=== PATIENT | female | born 1995 | race African-American/Black ===

== ENCOUNTER 2016-11-26 13:23 | Emergency (ER) | payer OTHER ==
[~2016-11-26] VITALS: Ht 182.8 cm; Wt 149.7 kg
[~2016-11-26 13:23] MED LIST: ADDERALL XR 3030 MG PO; ADDERALL XR30 MG PO; ADDERALL30 MG PO; ALBUTEROL0.09 MG/A2 INH; ALPRAZOLAM0.5 M3 PO; AMOXICILLIN500 MG PO; BENADRYL25 MG PO; CEPHALEXIN500 M1 PO; CIPRO250 MG PO; CLARITIN10 MG PO; CLINDAMYCIN HC300 MG PO; CLINDAMYCIN150 MG PO; FLONASE 0.05% 121 EA NAS; FLONASE ALLERG9.9 ML NAS; HYDROCODONE BIT1 T11 PO; IBU800 MG PO; LAMICTAL25 MG PO; LAMOTRIGINE25 M1 PO; MEDROL DOSEPAK4 MG PO; NAPROSYN250 MG PO; NAPROSYN500 MG PO; NAPROXEN500 M1 PO; NORCO 325 MG-51 TAB PO; PEN-V500 MG PO; PENICILLIN VK500 MG PO; PERIDEX 480 ML480 ML PO; PREDNISONE10 MG PO; ROBITUSSIN AC 110 ML PO; TESSALON PERLE100 M1 PO; ULTRAM50 MG PO; ZITHROMAX Z PA250 MG PO; ZOFRAN ODT4 MG SL; ZOFRAN4 MG PO
== END 2016-11-26 13:57 | disposition left against medical advice (07) ==
LOC: ED 13:23
DX: Z32.02 Encounter for pregnancy test, result negative (principal); Z53.21 Procedure and treatment not carried out due to patient leaving prior to being seen by health care provider

== ENCOUNTER 2016-12-21 13:29 | Emergency (ER) | payer OTHER | END 2016-12-21 16:11 | disposition home or self-care (01) | LOC: ED 13:29 | DX: S62.306A Unspecified fracture of fifth metacarpal bone, right hand, initial encounter for closed fracture (principal); R03.0 Elevated blood-pressure reading, without diagnosis of hypertension; F17.200 Nicotine dependence, unspecified, uncomplicated; Y08.89XA Assault by other specified means, initial encounter; Y93.89 Activity, other specified; Y92.9 Unspecified place or not applicable; Y99.9 Unspecified external cause status ==

== ENCOUNTER → 2017-09-22 | Outpatient (CLI) | payer OTHER | END | disposition home or self-care (01) | LOC: CARD 14:32 | DX: Z51.81 Encounter for therapeutic drug level monitoring (principal); F90.0 Attention-deficit hyperactivity disorder, predominantly inattentive type; Z79.899 Other long term (current) drug therapy ==

== ENCOUNTER 2018-04-01 18:50 | Emergency (ER) | payer OTHER ==
[~2018-04-01] VITALS: Wt 149.7 kg
[2018-04-01] MEDS ORDERED: VIBRAMYCIN100 MG PO (19:20)
[2018-04-01] MEDS ORDERED: KENALOG 0.1%80 GM T (19:20)
== END 2018-04-01 19:40 | disposition home or self-care (01) ==
LOC: ED 18:50
DX: L02.412 Cutaneous abscess of left axilla (principal); L30.9 Dermatitis, unspecified; Z79.899 Other long term (current) drug therapy

== ENCOUNTER 2018-08-03 11:08 | Emergency (ER) | payer OTHER ==
[~2018-08-03] VITALS: Ht 177.8 cm; Wt 135.2 kg
[~2018-08-03 11:08] MED LIST changes: +KENALOG 0.1%80 GM T; +VIBRAMYCIN100 MG PO
[2018-08-03] MEDS ORDERED: ZITHROMAX250 MG PO (13:35)
== END 2018-08-03 13:38 | disposition home or self-care (01) ==
LOC: ED 11:08
DX: J40 Bronchitis, not specified as acute or chronic (principal); F17.200 Nicotine dependence, unspecified, uncomplicated; Z79.899 Other long term (current) drug therapy

== ENCOUNTER 2019-10-14 23:49 | Emergency (ER) | payer OTHER ==
[~2019-10-14] VITALS: Ht 180.3 cm; Wt 149.7 kg
[~2019-10-14 23:49] MED LIST changes: +PREDNISONE20 M1 PO; +ROBAXIN500 M1 PO; +ZITHROMAX250 MG PO
[2019-10-15 01:12] LABS: BASO % 0.4 % (0.0-1.0); EOS # 0.3 10*3/uL (0.0-0.4); HEMATOCRIT 39.9 % (37.0-47.0); HEMOGLOBIN 12.8 g/dl (12.0-16.0); LYMPH # 4.1 10*3/uL (1.3-4.4); LYMPH % 36.4 % (27.0-41.0); MEAN CORPUSCULAR HGB 31.8 pg (27.0-31.0); MEAN CORPUSCULAR HGB CONC 32.1 g/dl (33.0-37.0); MEAN PLATELET VOLUME 10.1 fl (9.6-12.3); MONO % 8.8 % (3.0-9.0); NEUT # 5.8 10*3/uL (2.3-7.9); NEUT % 50.9 % (47.0-73.0); PLATELET COUNT AUTOMATED 324 10*3/uL (130-400); RED BLOOD COUNT 4.03 10*6/uL (4.10-5.10); RED CELL DISTRI WIDTH 12.9 % (0-14.5); WHITE BLOOD COUNT 11.3 10*3/uL (4.8-10.8)
[2019-10-15 01:27] LABS: ALBUMIN 3.1 gm/dl (3.1-4.5); ALKALINE PHOSPHATASE 85 U/L (45-117); BUN 12 mg/dl (7-24); CHLORIDE 108 mmol/L (98-107); CREATININE 1.12 mg/dL (0.55-1.02); POTASSIUM 4.4 mmol/L (3.5-5.1); SGOT/AST 20 IU/L (3-35); SGPT/ALT 19 U/L (12-78); SODIUM 140 mmol/L (136-145); TOTAL PROTEIN 7.2 gm/dL (6.4-8.2)
[2019-10-15] MEDS ORDERED: PEPCID20 MG PO (03:39)
[2019-10-15] MEDS ORDERED: PREDNISONE10 M1 PO (03:39)
[2019-10-15] MEDS ORDERED: DIPHENHYDRAMINE50 M1 PO (03:39)
== END 2019-10-15 03:58 | disposition home or self-care (01) ==
LOC: ED 23:49
PROVIDERS: Emergency Medicine
DX: T78.40XA Allergy, unspecified, initial encounter (principal); L50.9 Urticaria, unspecified; Z79.2 Long term (current) use of antibiotics; Z79.899 Other long term (current) drug therapy; X58.XXXA Exposure to other specified factors, initial encounter

== ENCOUNTER 2020-02-01 14:36 | Emergency (ER) | payer OTHER ==
[~2020-02-01] VITALS: Ht 180.3 cm; Wt 136.1 kg
[~2020-02-01 14:36] MED LIST changes: +DIPHENHYDRAMINE50 M1 PO; +PEPCID20 MG PO; +PREDNISONE10 M1 PO
[2020-02-01 15:19] LABS: BILIRUBIN NEGATIVE (NEGATIVE); BLOOD NEGATIVE (NEGATIVE); CLARITY CLEAR (CLEAR); COLOR YELLOW (YELLOW); GLUCOSE NEGATIVE (NEGATIVE); KETONE NEGATIVE (NEGATIVE); LEUKO ESTERASE TRACE (NEGATIVE); NITRITE NEGATIVE (NEGATIVE); SPECIFIC GRAVITY 1.015 (1.005-1.030); UROBILINOGEN 0.2 E.U./dl (0.2-1.0)
[2020-02-01 15:20] LABS: EPITHELIAL CELLS TNTC
[2020-02-01 15:21] LABS: BACTERIA 1+; MUCOUS TRACE
== END 2020-02-01 15:33 | disposition home or self-care (01) ==
LOC: ED 14:36
PROVIDERS: Nurse Practitioner Family
DX: Z20.2 Contact with and (suspected) exposure to infections with a predominantly sexual mode of transmission (principal); Z79.899 Other long term (current) drug therapy

== ENCOUNTER → 2020-04-11 | Outpatient (CLI) | payer OTHER | END | disposition home or self-care (01) | LOC: US 10:58 | PROVIDERS: ATTEND Nurse Practitioner Women's Health | DX: Z33.1 Pregnant state, incidental (principal) ==

== ENCOUNTER → 2020-04-20 | Outpatient (CLI) | payer OTHER | END | disposition home or self-care (01) | LOC: US 07:30 | PROVIDERS: ATTEND Nurse Practitioner Women's Health | DX: Z34.81 Encounter for supervision of other normal pregnancy, first trimester (principal); Z3A.08 8 weeks gestation of pregnancy ==

== ENCOUNTER → 2020-07-12 | Outpatient (CLI) | payer OTHER | END | disposition home or self-care (01) | LOC: US 10:30 | PROVIDERS: ATTEND Nurse Practitioner Women's Health | DX: Z34.82 Encounter for supervision of other normal pregnancy, second trimester (principal); Z3A.19 19 weeks gestation of pregnancy ==

== ENCOUNTER 2020-10-17 02:43 | Emergency (ER) | payer OTHER ==
[~2020-10-17] VITALS: Wt 149.7 kg
[2020-10-17 05:19] LABS: BILIRUBIN Negative (Negative); BLOOD Negative (Negative); COLOR Yellow (Yellow); GLUCOSE Negative (Negative); KETONE Trace (Negative); LEUKO ESTERASE 1+ (Negative); NITRITE Negative (Negative); PH 5.5 (4.5-8.0); SPECIFIC GRAVITY >= 1.030 (1.001-1.030)
[2020-10-17 05:26] LABS: CLARITY Cloudy (Clear)
[2020-10-17 05:53] LABS: BACTERIA TRACE; CALCIUM OXALATE CRYSTALS 3+; EPITHELIAL CELLS 21-30
== END 2020-10-17 06:20 | disposition home or self-care (01) ==
LOC: ED 02:43
PROVIDERS: Emergency Medicine
DX: O36.8130 Decreased fetal movements, third trimester, not applicable or unspecified (principal); Z79.899 Other long term (current) drug therapy; Z3A.32 32 weeks gestation of pregnancy

== ENCOUNTER 2021-01-03 05:07 | Inpatient (IN) | payer OTHER ==
[~2021-01-03] VITALS: Ht 175 cm; Wt 150.6 kg
[2021-01-03 05:10] VITALS: BP 124/84
[2021-01-03 06:19] LABS: BASO % 0.3 % (0.0-1.0); EOS # 0.2 10*3/uL (0.0-0.4); EOS % 1.1 % (1.0-4.0); HEMATOCRIT 35.7 % (37.0-47.0); MEAN CELL VOLUME 97.5 fl (81.0-99.0); MEAN CORPUSCULAR HGB CONC 32.8 g/dl (33.0-37.0); MEAN PLATELET VOLUME 9.3 fl (9.6-12.3); MONO # 0.9 10*3/uL (0.1-1.0); MONO % 5.7 % (3.0-9.0); NEUT # 12.1 10*3/uL (2.3-7.9); NEUT % 79.2 % (47.0-73.0); PLATELET COUNT AUTOMATED 253 10*3/uL (130-400); RED BLOOD COUNT 3.66 10*6/uL (4.10-5.10); RED CELL DISTRI WIDTH 12.2 % (0-14.5); WHITE BLOOD COUNT 15.2 10*3/uL (4.8-10.8)
[2021-01-03 06:35] LABS: ALBUMIN 2.7 gm/dl (3.1-4.5); ALKALINE PHOSPHATASE 87 U/L (45-117); BUN 12 mg/dl (7-24); CHLORIDE 108 mmol/L (98-107); CREATININE 1.02 mg/dL (0.55-1.02); POTASSIUM 4.1 mmol/L (3.5-5.1); SGOT/AST 19 IU/L (3-35); SGPT/ALT 24 U/L (12-78); SODIUM 141 mmol/L (136-145)
[2021-01-03 06:42] LABS: TROPONIN I < 0.015 ng/ml (<0.045)
[2021-01-03 09:30] VITALS: BP 133/79
[2021-01-03 10:08] LABS: ACT PARTIAL THROMBO TIME 32.2 SECONDS (20.0-32.1); INTERNATIONAL NORM RATIO 0.9 (2.0-3.5)
[2021-01-03 10:30] VITALS: BP 130/80
[2021-01-03 16:00] VITALS: BP 144/78
[2021-01-03 20:00] VITALS: BP 128/87
[2021-01-04] VITALS: BP 139/95
[2021-01-04 06:17] LABS: BASO % 0.3 % (0.0-1.0); EOS # 0.2 10*3/uL (0.0-0.4); EOS % 1.3 % (1.0-4.0); HEMATOCRIT 37.1 % (37.0-47.0); LYMPH # 2.4 10*3/uL (1.3-4.4); LYMPH % 18.4 % (27.0-41.0); MEAN CELL VOLUME 96.1 fl (81.0-99.0); MEAN CORPUSCULAR HGB 31.6 pg (27.0-31.0); MEAN CORPUSCULAR HGB CONC 32.9 g/dl (33.0-37.0); MEAN PLATELET VOLUME 9.6 fl (9.6-12.3); MONO # 0.9 10*3/uL (0.1-1.0); MONO % 7.1 % (3.0-9.0); NEUT # 9.3 10*3/uL (2.3-7.9); NEUT % 71.9 % (47.0-73.0); PLATELET COUNT AUTOMATED 269 10*3/uL (130-400); RED BLOOD COUNT 3.86 10*6/uL (4.10-5.10); RED CELL DISTRI WIDTH 12.2 % (0-14.5); WHITE BLOOD COUNT 12.9 10*3/uL (4.8-10.8)
[2021-01-04 07:07] LABS: ALBUMIN 2.8 gm/dl (3.1-4.5); ALKALINE PHOSPHATASE 90 U/L (45-117); BUN 6 mg/dl (7-24); CHLORIDE 106 mmol/L (98-107); CHOLESTEROL 161 mg/dL (<200); CREATININE 0.85 mg/dL (0.55-1.02); FREE T4 1.08 ng/dl (0.76-1.46); LDL CHOLESTEROL 83 mg/dL (9-159); POTASSIUM 3.8 mmol/L (3.5-5.1); SGOT/AST 12 IU/L (3-35); SGPT/ALT 23 U/L (12-78); SODIUM 138 mmol/L (136-145); TOTAL PROTEIN 7.4 gm/dL (6.4-8.2); TRIGLYCERIDES 220 mg/dl (<150)
[2021-01-04 08:00] VITALS: BP 131/64
[2021-01-04 08:24] LABS: VITAMIN D, 25-HYDROXY 9.4 ng/mL (30-100)
[2021-01-04 12:00] VITALS: BP 118/69
[2021-01-04 16:00] VITALS: BP 122/75
[2021-01-04 20:00] VITALS: BP 113/76
[2021-01-05] VITALS: BP 118/73
[2021-01-05 06:21] LABS: BASO # 0.1 10*3/uL (0.0-0.1); BASO % 0.3 % (0.0-1.0); EOS # 0.1 10*3/uL (0.0-0.4); EOS % 0.8 % (1.0-4.0); LYMPH # 2.2 10*3/uL (1.3-4.4); LYMPH % 15.3 % (27.0-41.0); MEAN CELL VOLUME 98.3 fl (81.0-99.0); MEAN CORPUSCULAR HGB 31.5 pg (27.0-31.0); MONO # 1.1 10*3/uL (0.1-1.0); MONO % 7.4 % (3.0-9.0); NEUT # 10.9 10*3/uL (2.3-7.9); NEUT % 75.2 % (47.0-73.0); PLATELET COUNT AUTOMATED 280 10*3/uL (130-400); RED BLOOD COUNT 3.56 10*6/uL (4.10-5.10); RED CELL DISTRI WIDTH 12.1 % (0-14.5); WHITE BLOOD COUNT 14.5 10*3/uL (4.8-10.8)
[2021-01-05 06:35] LABS: BUN 10 mg/dl (7-24); CHLORIDE 106 mmol/L (98-107); CREATININE 1.07 mg/dL (0.55-1.02); POTASSIUM 4.1 mmol/L (3.5-5.1); SODIUM 139 mmol/L (136-145)
[2021-01-05 08:00] VITALS: BP 120/68
[2021-01-05 12:00] VITALS: BP 123/89
[2021-01-05 16:00] VITALS: BP 120/88
[2021-01-05 20:00] VITALS: BP 100/77
[2021-01-06] VITALS: BP 122/63
[2021-01-06 06:16] LABS: ALBUMIN 2.6 gm/dl (3.1-4.5); BUN 9 mg/dl (7-24); CHLORIDE 108 mmol/L (98-107); CREATININE 0.88 mg/dL (0.55-1.02); POTASSIUM 3.8 mmol/L (3.5-5.1); SGOT/AST 15 IU/L (3-35); SGPT/ALT 23 U/L (12-78); SODIUM 139 mmol/L (136-145)
[2021-01-06 06:19] LABS: ALKALINE PHOSPHATASE 81 U/L (45-117)
[2021-01-06 06:44] LABS: BASO % 0.3 % (0.0-1.0); EOS # 0.2 10*3/uL (0.0-0.4); EOS % 2.1 % (1.0-4.0); HEMATOCRIT 32.7 % (37.0-47.0); LYMPH # 2.5 10*3/uL (1.3-4.4); LYMPH % 23.8 % (27.0-41.0); MEAN CELL VOLUME 99.1 fl (81.0-99.0); MEAN CORPUSCULAR HGB 31.5 pg (27.0-31.0); MEAN CORPUSCULAR HGB CONC 31.8 g/dl (33.0-37.0); MONO # 0.8 10*3/uL (0.1-1.0); MONO % 7.8 % (3.0-9.0); NEUT % 65.1 % (47.0-73.0); PLATELET COUNT AUTOMATED 284 10*3/uL (130-400); RED CELL DISTRI WIDTH 12.3 % (0-14.5); WHITE BLOOD COUNT 10.7 10*3/uL (4.8-10.8)
[2021-01-06 08:00] VITALS: BP 134/87
[2021-01-06 12:00] VITALS: BP 122/78
[2021-01-06] MEDS ORDERED: VITAMIN D3125 MC1 PO (13:32)
[2021-01-06] MEDS ORDERED: HYDROCODONE-AC1 EAC1 PO (13:32)
[2021-01-06] MEDS ORDERED: XARELTO1 EACH PO (13:32)
== END 2021-01-06 15:51 | disposition home or self-care (01) | DRG 561 ==
LOC: ED 05:07 → 5E 09:56 → EDHOLD 09:56 → 5E 10:22
PROVIDERS: Emergency Medicine; Internal Medicine; ADMIT Internal Medicine; ATTEND Internal Medicine
DX: O88.23 Thromboembolism in the puerperium (principal); I26.99 Other pulmonary embolism without acute cor pulmonale; E87.8 Other disorders of electrolyte and fluid balance, not elsewhere classified; D64.9 Anemia, unspecified; E43 Unspecified severe protein-calorie malnutrition; R65.10 Systemic inflammatory response syndrome (SIRS) of non-infectious origin without acute organ dysfunction; E55.9 Vitamin D deficiency, unspecified; F90.9 Attention-deficit hyperactivity disorder, unspecified type; O99.285 Endocrine, nutritional and metabolic diseases complicating the puerperium; O99.345 Other mental disorders complicating the puerperium; O99.215 Obesity complicating the puerperium; O86.89 Other specified puerperal infections; E66.01 Morbid (severe) obesity due to excess calories; O99.893 Other specified diseases and conditions complicating puerperium; O25.3 Malnutrition in the puerperium; O99.03 Anemia complicating the puerperium; R59.0 Localized enlarged lymph nodes; Z83.3 Family history of diabetes mellitus; Z82.49 Family history of ischemic heart disease and other diseases of the circulatory system; Z87.891 Personal history of nicotine dependence

== ENCOUNTER 2021-01-07 21:52 | Inpatient (IN) | payer OTHER ==
[~2021-01-07] VITALS: Ht 180.3 cm; Wt 151.6 kg
[~2021-01-07 21:52] MED LIST changes: +HYDROCODONE-AC1 EAC1 PO; +VITAMIN D3125 MC1 PO; +XARELTO1 EACH PO
[2021-01-07 21:58] VITALS: BP 149/103
[2021-01-07 22:20] LABS: BASO % 0.1 % (0.0-1.0); EOS # 0.1 10*3/uL (0.0-0.4); EOS % 1.1 % (1.0-4.0); HEMATOCRIT 32.9 % (37.0-47.0); LYMPH # 1.9 10*3/uL (1.3-4.4); LYMPH % 15.3 % (27.0-41.0); MEAN CELL VOLUME 98.5 fl (81.0-99.0); MEAN CORPUSCULAR HGB 31.4 pg (27.0-31.0); MEAN CORPUSCULAR HGB CONC 31.9 g/dl (33.0-37.0); MEAN PLATELET VOLUME 9.3 fl (9.6-12.3); MONO # 0.9 10*3/uL (0.1-1.0); MONO % 7.4 % (3.0-9.0); NEUT # 9.3 10*3/uL (2.3-7.9); NEUT % 75.3 % (47.0-73.0); PLATELET COUNT AUTOMATED 334 10*3/uL (130-400); RED BLOOD COUNT 3.34 10*6/uL (4.10-5.10); RED CELL DISTRI WIDTH 12.3 % (0-14.5); WHITE BLOOD COUNT 12.4 10*3/uL (4.8-10.8)
[2021-01-07 22:35] LABS: ALBUMIN 2.6 gm/dl (3.1-4.5); ALKALINE PHOSPHATASE 79 U/L (45-117); BUN 6 mg/dl (7-24); CHLORIDE 106 mmol/L (98-107); CREATININE 0.88 mg/dL (0.55-1.02); POTASSIUM 3.6 mmol/L (3.5-5.1); SGOT/AST 14 IU/L (3-35); SGPT/ALT 24 U/L (12-78); SODIUM 139 mmol/L (136-145); TOTAL PROTEIN 7.7 gm/dL (6.4-8.2)
[2021-01-07 22:59] LABS: TROPONIN I < 0.015 ng/ml (<0.045)
[2021-01-08] VITALS (7 sets, daily range): BP systolic 108–147; BP diastolic 55–82
[2021-01-08 07:33] LABS: BASO % 0.3 % (0.0-1.0); EOS # 0.1 10*3/uL (0.0-0.4); EOS % 1.3 % (1.0-4.0); HEMATOCRIT 31.3 % (37.0-47.0); LYMPH % 19.2 % (27.0-41.0); MEAN CELL VOLUME 99.1 fl (81.0-99.0); MEAN CORPUSCULAR HGB 31.3 pg (27.0-31.0); MEAN CORPUSCULAR HGB CONC 31.6 g/dl (33.0-37.0); MEAN PLATELET VOLUME 9.4 fl (9.6-12.3); MONO # 0.9 10*3/uL (0.1-1.0); MONO % 8.5 % (3.0-9.0); NEUT # 7.4 10*3/uL (2.3-7.9); NEUT % 69.9 % (47.0-73.0); PLATELET COUNT AUTOMATED 319 10*3/uL (130-400); RED BLOOD COUNT 3.16 10*6/uL (4.10-5.10); RED CELL DISTRI WIDTH 12.2 % (0-14.5); WHITE BLOOD COUNT 10.6 10*3/uL (4.8-10.8)
[2021-01-08 08:09] LABS: ALBUMIN 2.5 gm/dl (3.1-4.5); ALKALINE PHOSPHATASE 70 U/L (45-117); BUN 6 mg/dl (7-24); CHLORIDE 107 mmol/L (98-107); CREATININE 0.86 mg/dL (0.55-1.02); POTASSIUM 3.5 mmol/L (3.5-5.1); SGOT/AST 15 IU/L (3-35); SGPT/ALT 21 U/L (12-78); SODIUM 139 mmol/L (136-145)
[2021-01-08 08:36] LABS: ACT PARTIAL THROMBO TIME 33.9 SECONDS (20.0-32.1); INTERNATIONAL NORM RATIO 1.1 (2.0-3.5)
[2021-01-09] VITALS: BP 127/79
[2021-01-09 08:00] VITALS: BP 126/78
[2021-01-09 12:00] VITALS: BP 127/85
[2021-01-09] MEDS ORDERED: DOXYCYCLINE100 M3 PO (13:14)
[2021-01-09 16:00] VITALS: BP 128/90
[2021-01-09 20:00] VITALS: BP 118/60
[2021-01-10] VITALS: BP 135/88
[2021-01-10 08:00] VITALS: BP 122/68
[2021-01-10 12:00] VITALS: BP 134/82
== END 2021-01-10 15:50 | disposition home or self-care (01) | DRG 561 ==
LOC: ED 21:52 → EDHOLD 01-08 06:29 → 4E 01-08 06:29 → EDHOLD 01-08 06:59 → 4E 01-08 08:28
PROVIDERS: Hospitalist; ADMIT Emergency Medicine; ATTEND Emergency Medicine
DX: O85 Puerperal sepsis (principal); O99.53 Diseases of the respiratory system complicating the puerperium; O99.215 Obesity complicating the puerperium; O25.3 Malnutrition in the puerperium; O99.325 Drug use complicating the puerperium; O99.345 Other mental disorders complicating the puerperium; O99.73 Diseases of the skin and subcutaneous tissue complicating the puerperium; O99.03 Anemia complicating the puerperium; E43 Unspecified severe protein-calorie malnutrition; J18.9 Pneumonia, unspecified organism; F90.9 Attention-deficit hyperactivity disorder, unspecified type; O90.89 Other complications of the puerperium, not elsewhere classified; O99.285 Endocrine, nutritional and metabolic diseases complicating the puerperium; R73.9 Hyperglycemia, unspecified; D53.9 Nutritional anemia, unspecified; L30.9 Dermatitis, unspecified; F12.90 Cannabis use, unspecified, uncomplicated; E55.9 Vitamin D deficiency, unspecified; E66.01 Morbid (severe) obesity due to excess calories; Z87.891 Personal history of nicotine dependence; Z83.3 Family history of diabetes mellitus; Z82.49 Family history of ischemic heart disease and other diseases of the circulatory system; Z79.899 Other long term (current) drug therapy

== ENCOUNTER 2021-02-19 06:14 | Emergency (ER) | payer OTHER ==
[~2021-02-19] VITALS: Ht 187.9 cm; Wt 165.1 kg
[~2021-02-19 06:14] MED LIST changes: +DOXYCYCLINE100 M3 PO
[2021-02-19 06:52] LABS: BILIRUBIN Negative (Negative); BLOOD Negative (Negative); CLARITY Cloudy (Clear); COLOR Yellow (Yellow); GLUCOSE Negative (Negative); KETONE Trace (Negative); LEUKO ESTERASE Trace (Negative); NITRITE Negative (Negative); PH 5.5 (4.5-8.0); SPECIFIC GRAVITY 1.025 (1.001-1.030)
[2021-02-19 07:07] LABS: BACTERIA 1+; CALCIUM OXALATE CRYSTALS 1+
[2021-02-19] MEDS ORDERED: CYCLOBENZAPRINE5 M3 PO (08:30)
== END 2021-02-19 08:36 | disposition home or self-care (01) ==
LOC: ED 06:14
PROVIDERS: Emergency Medicine
DX: M25.551 Pain in right hip (principal)

== ENCOUNTER → 2021-03-07 | Outpatient (CLI) | payer OTHER ==
[~2021-03-07] MED LIST changes: +CYCLOBENZAPRINE5 M3 PO
== END | disposition home or self-care (01) ==
LOC: RESCLI 00:17
PROVIDERS: ATTEND Internal Medicine Nephrology
DX: Z86.711 Personal history of pulmonary embolism (principal); Z79.899 Other long term (current) drug therapy; Z98.890 Other specified postprocedural states

== ENCOUNTER → 2021-03-27 | Outpatient (CLI) | payer OTHER | END | disposition home or self-care (01) | LOC: COVID19 17:52 | PROVIDERS: ATTEND Internal Medicine | DX: U07.1 COVID-19 (principal) ==

== ENCOUNTER 2021-05-31 19:51 | Emergency (ER) | payer OTHER ==
[~2021-05-31] VITALS: Ht 180.3 cm; Wt 150.3 kg
[2021-05-31 21:55] LABS: BASO % 0.1 % (0.0-1.0); EOS # 0.1 10*3/uL (0.0-0.4); HEMATOCRIT 34.7 % (37.0-47.0); LYMPH # 2.6 10*3/uL (1.3-4.4); LYMPH % 25.5 % (27.0-41.0); MEAN CELL VOLUME 92.8 fl (81.0-99.0); MEAN CORPUSCULAR HGB 30.2 pg (27.0-31.0); MEAN CORPUSCULAR HGB CONC 32.6 g/dl (33.0-37.0); MEAN PLATELET VOLUME 9.7 fl (9.6-12.3); MONO # 0.9 10*3/uL (0.1-1.0); MONO % 8.2 % (3.0-9.0); NEUT # 6.7 10*3/uL (2.3-7.9); NEUT % 64.6 % (47.0-73.0); PLATELET COUNT AUTOMATED 337 10*3/uL (130-400); RED BLOOD COUNT 3.74 10*6/uL (4.10-5.10); WHITE BLOOD COUNT 10.4 10*3/uL (4.8-10.8)
[2021-05-31 22:11] LABS: ALBUMIN 2.6 gm/dl (3.1-4.5); ALKALINE PHOSPHATASE 82 U/L (45-117); BUN 11 mg/dl (7-24); CHLORIDE 108 mmol/L (98-107); CREATININE 0.83 mg/dL (0.55-1.02); POTASSIUM 3.8 mmol/L (3.5-5.1); SGOT/AST 15 IU/L (3-35); SGPT/ALT 25 U/L (12-78); SODIUM 141 mmol/L (136-145); TOTAL PROTEIN 7.1 gm/dL (6.4-8.2)
[2021-06-01] MEDS ORDERED: XARELTO1 EACH PO (11:02)
== END 2021-06-01 02:12 | disposition left against medical advice (07) ==
LOC: ED 19:51
PROVIDERS: Physician Assistant
DX: I26.99 Other pulmonary embolism without acute cor pulmonale (principal); Z87.891 Personal history of nicotine dependence

== ENCOUNTER → 2021-12-21 | Outpatient (CLI) | payer OTHER | END | disposition home or self-care (01) | LOC: US 10:00 | PROVIDERS: ATTEND Obstetrics & Gynecology | DX: Z34.91 Encounter for supervision of normal pregnancy, unspecified, first trimester (principal); Z3A.10 10 weeks gestation of pregnancy ==